=== PATIENT | male | born 1990 | race Caucasian/White ===

== ENCOUNTER 2017-06-25 18:24 | Emergency (ER) | payer OTHER ==
[~2017-06-25] VITALS: Ht 175.3 cm; Wt 117.0 kg
[2017-06-26] MEDS ORDERED: KETOROLAC 30MG/ML VIAL IV ONE (03:30)
[2017-06-26] MEDS ORDERED: ONDANSETRON HCL 4MG/2ML VIAL IM ONE (03:30)
[2017-06-26] MEDS ORDERED: KETOROLAC 30MG/ML VIAL IM ONE (03:45)
[2017-06-26] MEDS ORDERED: HYDROCODONE/ACETAMINOPHEN 5/325MG TABLET PO ONE (04:45)
[2017-06-26 05:15] VITALS: BP 128/78
== END 2017-06-26 05:16 | disposition home or self-care (01) ==
LOC: ER 18:24
DX: S33.8XXA Sprain of other parts of lumbar spine and pelvis, initial encounter (principal); I10 Essential (primary) hypertension; X50.0XXA Overexertion from strenuous movement or load, initial encounter; Y93.89 Activity, other specified; Y92.89 Other specified places as the place of occurrence of the external cause; Y99.8 Other external cause status
CPT/HCPCS: 96372; 99284; J1885; J2405

== ENCOUNTER 2018-03-07 09:28 | Emergency (ER) | payer OTHER ==
[~2018-03-07] VITALS: Ht 175.3 cm; Wt 117.0 kg
[2018-03-07] MEDS ORDERED: MORPHINE SULFATE 4 MG/ML CPJ (NOT FOR IM USE) IV STA (10:33)
[2018-03-07] MEDS ORDERED: ONDANSETRON HCL 4MG/2ML VIAL IV STA (10:33)
[2018-03-07] MEDS ORDERED: SODIUM CHLORIDE 0.9% 1,000 ML IV ONE (10:33)
[2018-03-07 10:56] LABS: BASOPHILS % 0.4 % (0.0-2.0); EOSINOPHILS % 1.4 % (0.0-5.0); HEMATOCRIT. 43.8 % (42.0-52.0); HEMOGLOBIN. 14.7 g/dL (14.0-18.0); LYMPHOCYTES % 26.1 % (20.0-50.0); MEAN CORPUSCULAR HEMOGLOBIN 29.8 pg (28.0-32.0); MEAN CORPUSCULAR VOLUME 88.8 fL (80.0-94.0); MEAN PLATELET VOLUME 9.1 fl (7.4-10.4); MONOCYTES % 6.4 % (2.0-8.0); NEUTROPHILS % 65.7 % (40.0-76.0); PLATELET 277 x1000/uL (130-400); RED BLOOD CELL COUNT 4.93 mill/uL (4.7-6.1); RED CELL DISTRIBUTION WIDTH 14.1 % (11.6-14.6)
[2018-03-07 11:00] LABS: CHLORIDE 112 mEq/L (98-107)
[2018-03-07 11:02] LABS: PROTHROMBIN TIME 10.8 sec (9.4-11.6)
[2018-03-07 11:34] LABS: KETONES URINE NEGATIVE (NEGATIVE); LEUKOCYTE ESTERASE URINE NEGATIVE (NEGATIVE); NITRITE URINE NEGATIVE (NEGATIVE); OCCULT BLOOD URINE NEGATIVE (NEGATIVE); PH URINE 6.5 (4.5-8.0); PROTEIN URINE NEGATIVE (NEGATIVE); UROBILINOGEN URINE 0.2 E.U./dL (0.2-1.0)
[2018-03-07 11:35] LABS: CLARITY URINE CLEAR (CLEAR); COLOR URINE YELLOW (YELLOW)
[2018-03-07 13:13] VITALS: BP 116/66
[2018-03-07] MEDS ORDERED: IOHEXOL-300 100 ML BOTTLE ONE (13:44)
== END 2018-03-07 14:40 | disposition home or self-care (01) ==
LOC: ER 09:39
DX: R10.31 Right lower quadrant pain (principal); I10 Essential (primary) hypertension; F17.210 Nicotine dependence, cigarettes, uncomplicated; F12.90 Cannabis use, unspecified, uncomplicated
CPT/HCPCS: 36415; 74177; 80053; 81003; 83690; 85025; 85610; 96361; 96374; 96375; 99285; J2270; J2405; J7030; Q9967; Z7610

== ENCOUNTER 2021-05-07 21:18 | Emergency (ER) | payer OTHER ==
[~2021-05-07] VITALS: Ht 177.8 cm; Wt 160.0 kg
[2021-05-07] MEDS ORDERED: LORAZEPAM 2MG/ML CPJ IV ONE (21:45)
[2021-05-07] MEDS ORDERED: ASPIRIN 81MG TABLET PO ONE (21:45)
[2021-05-07] MEDS ORDERED: NITROGLYCERIN 0.4MG TABLET SL SL PRN (21:45)
[2021-05-07] MEDS ORDERED: SODIUM CHLORIDE 0.9% 1,000 ML IV ONE (21:45)
[2021-05-07 22:15] LABS: BASOPHILS % 0.5 % (0.0-2.0); EOSINOPHILS % 1.5 % (0.0-5.0); HEMOGLOBIN. 13.5 g/dL (14.0-18.0); LYMPHOCYTES % 25.6 % (20.0-50.0); MEAN CORPUSCULAR HEMOGLOBIN 28.8 pg (28.0-32.0); MEAN CORPUSCULAR VOLUME 83.3 fL (80.0-94.0); MEAN PLATELET VOLUME 9.1 fl (7.4-10.4); MONOCYTES % 6.5 % (2.0-8.0); NEUTROPHILS % 65.9 % (40.0-76.0); PLATELET 253 x1000/uL (130-400); RED BLOOD CELL COUNT 4.68 mill/uL (4.7-6.1); RED CELL DISTRIBUTION WIDTH 15.7 % (11.6-14.6)
[2021-05-07 22:19] LABS: CHLORIDE 102 mEq/L (98-107)
[2021-05-07 22:22] LABS: ETHANOL BLOOD < 10 mg/dL
[2021-05-07 22:55] LABS: *AMPHETAMINES SCREEN URINE NEGATIVE (NEGATIVE); *BARBITURATES SCREEN URINE NEGATIVE (NEGATIVE); *BENZODIAZEPINES SCREEN URINE NEGATIVE (NEGATIVE)
[2021-05-07 22:57] LABS: *COCAINE SCREEN URINE NEGATIVE (NEGATIVE); CANNABINOID URINE SCREEN PRESUMTIVE POSITIVE (NEGATIVE); METHADONE URINE SCREEN NEGATIVE (NEGATIVE); OPIATES URINE SCREEN NEGATIVE (NEGATIVE); PHENCYCLIDINE URINE SCREEN NEGATIVE (NEGATIVE)
[2021-05-08 02:17] VITALS: BP 136/65
== END 2021-05-08 02:19 | disposition home or self-care (01) ==
LOC: ER 21:18
DX: R07.89 Other chest pain (principal); F12.90 Cannabis use, unspecified, uncomplicated; R03.0 Elevated blood-pressure reading, without diagnosis of hypertension; I10 Essential (primary) hypertension; Z68.43 Body mass index [BMI] 50.0-59.9, adult; E66.9 Obesity, unspecified; R00.0 Tachycardia, unspecified; H26.9 Unspecified cataract
CPT/HCPCS: 36415; 71045; 80053; 80305; 80320; 83880; 84484; 85025; 93005; 96361; 96374; 99285; J2060; J7030; Z7610; G0480

== ENCOUNTER 2021-07-30 00:52 | Emergency (ER) | payer OTHER ==
[~2021-07-30] VITALS: Ht 177.8 cm; Wt 157.2 kg
[2021-07-30 02:59] LABS: BASOPHILS % 0.4 % (0.0-2.0); EOSINOPHILS % 0.9 % (0.0-5.0); HEMATOCRIT. 39.7 % (42.0-52.0); HEMOGLOBIN. 13.3 g/dL (14.0-18.0); LYMPHOCYTES % 23.1 % (20.0-50.0); MEAN CORPUSCULAR HEMOGLOBIN 28.4 pg (28.0-32.0); MEAN CORPUSCULAR VOLUME 84.7 fL (80.0-94.0); MEAN PLATELET VOLUME 8.3 fl (7.4-10.4); MONOCYTES % 8.3 % (2.0-8.0); NEUTROPHILS % 67.3 % (40.0-76.0); PLATELET 243 x1000/uL (130-400); RED BLOOD CELL COUNT 4.69 mill/uL (4.7-6.1); RED CELL DISTRIBUTION WIDTH 14.6 % (11.6-14.6)
[2021-07-30 03:06] LABS: CHLORIDE 106 mEq/L (98-107)
[2021-07-30] MEDS ORDERED: AZIT250T12 MT (03:39)
[2021-07-30 03:40] VITALS: BP 124/78
== END 2021-07-30 03:48 | disposition home or self-care (01) ==
LOC: ER 00:52
DX: J18.9 Pneumonia, unspecified organism (principal); R05 Cough; M79.10 Myalgia, unspecified site; R00.0 Tachycardia, unspecified; F12.10 Cannabis abuse, uncomplicated; F17.290 Nicotine dependence, other tobacco product, uncomplicated; I10 Essential (primary) hypertension; Z79.899 Other long term (current) drug therapy; Z98.890 Other specified postprocedural states; Z20.822 Contact with and (suspected) exposure to COVID-19
CPT/HCPCS: 36415; 71045; 80053; 85025; 87426; 99284; 99406

== ENCOUNTER 2021-07-31 14:50 | Emergency (ER) | payer OTHER ==
[~2021-07-31] VITALS: Ht 177.8 cm; Wt 136.0 kg
[~2021-07-31 14:50] MED LIST: AZIT250T12 MT
[2021-07-31 16:20] LABS: BASOPHILS % 0.6 % (0.0-2.0); EOSINOPHILS % 1.3 % (0.0-5.0); HEMATOCRIT. 40.9 % (42.0-52.0); HEMOGLOBIN. 13.8 g/dL (14.0-18.0); LYMPHOCYTES % 27.4 % (20.0-50.0); MEAN CORPUSCULAR HEMOGLOBIN 28.5 pg (28.0-32.0); MEAN CORPUSCULAR VOLUME 84.2 fL (80.0-94.0); MEAN PLATELET VOLUME 8.6 fl (7.4-10.4); MONOCYTES % 6.1 % (2.0-8.0); NEUTROPHILS % 64.6 % (40.0-76.0); PLATELET 271 x1000/uL (130-400); RED BLOOD CELL COUNT 4.85 mill/uL (4.7-6.1); RED CELL DISTRIBUTION WIDTH 14.9 % (11.6-14.6)
[2021-07-31 16:26] LABS: CHLORIDE 107 mEq/L (98-107)
[2021-07-31 21:08] VITALS: BP 121/63
== END 2021-07-31 20:30 | disposition home or self-care (01) ==
LOC: ER 14:50
DX: I10 Essential (primary) hypertension (principal); R06.00 Dyspnea, unspecified; Z87.891 Personal history of nicotine dependence; F12.10 Cannabis abuse, uncomplicated
CPT/HCPCS: 36415; 71045; 71275; 80053; 83880; 84484; 85025; 99285

== ENCOUNTER 2021-08-06 01:52 | Emergency (ER) | payer OTHER ==
[~2021-08-06] VITALS: Ht 177.8 cm; Wt 156.0 kg
[2021-08-06] MEDS ORDERED: KETOROLAC 60MG/2ML VIAL IM ONE (02:30)
[2021-08-06 03:02] LABS: BASOPHILS % 0.9 % (0.0-2.0); EOSINOPHILS % 1.2 % (0.0-5.0); HEMATOCRIT. 39.7 % (42.0-52.0); HEMOGLOBIN. 13.2 g/dL (14.0-18.0); LYMPHOCYTES % 30.2 % (20.0-50.0); MEAN CORPUSCULAR HEMOGLOBIN 28.4 pg (28.0-32.0); MEAN CORPUSCULAR VOLUME 85.4 fL (80.0-94.0); MEAN PLATELET VOLUME 8.4 fl (7.4-10.4); MONOCYTES % 6.8 % (2.0-8.0); NEUTROPHILS % 60.9 % (40.0-76.0); PLATELET 283 x1000/uL (130-400); RED BLOOD CELL COUNT 4.65 mill/uL (4.7-6.1); RED CELL DISTRIBUTION WIDTH 14.7 % (11.6-14.6)
[2021-08-06 03:07] LABS: CHLORIDE 107 mEq/L (98-107)
[2021-08-06 03:11] LABS: ETHANOL BLOOD < 10 mg/dL
[2021-08-06 04:15] VITALS: BP 132/80
== END 2021-08-06 04:30 | disposition home or self-care (01) ==
LOC: ER 01:52
DX: E03.9 Hypothyroidism, unspecified (principal); R00.2 Palpitations
CPT/HCPCS: 36415; 80053; 80320; 83690; 83880; 84443; 84484; 85025; 93005; 96372; 99284; J1885; G0480

== ENCOUNTER 2023-01-02 07:29 | Emergency (ER) | payer OTHER ==
[~2023-01-02] VITALS: Ht 175.3 cm; Wt 156.0 kg
[2023-01-02 07:41] VITALS: BP 175/89
== END 2023-01-02 08:26 | disposition left against medical advice (07) ==
LOC: ER 07:29
DX: I10 Essential (primary) hypertension (principal)
CPT/HCPCS: 99281

== ENCOUNTER 2023-05-05 23:24 | Emergency (ER) | payer MEDICAID, OTHER ==
[~2023-05-05] VITALS: Ht 177.8 cm; Wt 156.5 kg
[2023-05-06] MEDS ORDERED: HYDR-4001 MT (00:24)
[2023-05-06] MEDS ORDERED: AMOX-494 MT (00:24)
[2023-05-06] MEDS ORDERED: IBUP-2029 MT (00:24)
[2023-05-06 00:30] VITALS: BP 136/74
[2023-05-06] MEDS ORDERED: HYDROCODONE/ACETAMINOPHEN 5/325MG TABLET PO ONE (00:30)
== END 2023-05-06 01:05 | disposition home or self-care (01) ==
LOC: ER 23:24
DX: K08.89 Other specified disorders of teeth and supporting structures (principal); I10 Essential (primary) hypertension; Z86.39 Personal history of other endocrine, nutritional and metabolic disease
CPT/HCPCS: 99283

== ENCOUNTER 2023-05-22 05:45 | Emergency (ER) | payer MEDICAID, OTHER ==
[~2023-05-22] VITALS: Ht 172.7 cm; Wt 153.0 kg
[~2023-05-22 05:45] MED LIST changes: +AMOX-494 MT; +HYDR-4001 MT; +IBUP-2029 MT
[2023-05-22 06:18] VITALS: TEMP 98.2; O2SAT 97
[2023-05-22 06:19] LABS: CLARITY URINE CLOUDY (CLEAR); COLOR URINE YELLOW (YELLOW); KETONES URINE NEGATIVE (NEGATIVE); LEUKOCYTE ESTERASE URINE 3+ (NEGATIVE); NITRITE URINE NEGATIVE (NEGATIVE); OCCULT BLOOD URINE 3+ (NEGATIVE); PROTEIN URINE 2+ (NEGATIVE); UROBILINOGEN URINE 0.2 E.U./dL (0.2-1.0)
[2023-05-22] MEDS ORDERED: PYR200 MT (07:51)
[2023-05-22] MEDS ORDERED: CEPH500C2 MT (07:51)
[2023-05-22] MEDS ORDERED: IBUP-2029 MT (07:51)
[2023-05-22 08:00] VITALS: BP 144/80; PULSE 86; RESP 19
[2023-05-22] MEDS ORDERED: IBUPROFEN 600MG TABLET PO ONE (08:00)
[2023-05-27 04:12] LABS: NEISSERIA GONORRHOEAE NAA Negative (Negative)
== END 2023-05-22 08:09 | disposition home or self-care (01) ==
LOC: ER 05:45
DX: N30.90 Cystitis, unspecified without hematuria (principal); F12.10 Cannabis abuse, uncomplicated; Z79.899 Other long term (current) drug therapy
CPT/HCPCS: 81003; 87186; 87491; 87591; 99283

== ENCOUNTER 2024-07-14 19:26 | Emergency (ER) | payer MEDICAID, OTHER ==
[~2024-07-14] VITALS: Ht 175.3 cm; Wt 158.0 kg
[~2024-07-14 19:26] MED LIST changes: +CEPH500C2 MT; +PYR200 MT
[2024-07-14 19:30] VITALS: O2SAT 96
[2024-07-14 19:34] VITALS: BP 148/84; PULSE 78; RESP 18; TEMP 98.2; O2SAT 98
[2024-07-14] MEDS: DEXAMETHASONE 10 MG/ML VIAL IM ONE (20:15)
[2024-07-14 21:41] LABS: BASOPHILS % 0.6 % (0.0-2.0); EOSINOPHILS % 0.9 % (0.0-5.0); HEMATOCRIT. 39.4 % (42.0-52.0); HEMOGLOBIN. 12.7 g/dL (14.0-18.0); LYMPHOCYTES % 25.4 % (20.0-50.0); MEAN CORPUSCULAR HEMOGLOBIN 27.3 pg (28.0-32.0); MEAN CORPUSCULAR HGB CONC 32.3 g/dL (31.0-37.0); MEAN CORPUSCULAR VOLUME 84.5 fL (80.0-94.0); MEAN PLATELET VOLUME 8.4 fl (7.4-10.4); MONOCYTES % 6.6 % (2.0-8.0); NEUTROPHILS % 66.5 % (40.0-76.0); PLATELET 290 x1000/uL (130-400); RED BLOOD CELL COUNT 4.66 mill/uL (4.7-6.1); RED CELL DISTRIBUTION WIDTH 15.1 % (11.6-14.6)
[2024-07-14 21:50] LABS: CHLORIDE 110 mEq/L (98-107); POTASSIUM 3.7 mEq/L (3.5-5.1); SODIUM 139 mEq/L (136-145)
[2024-07-14 21:51] LABS: CARBON DIOXIDE 23 mEq/L (21-32)
[2024-07-14 21:52] LABS: CALCIUM 8.7 mg/dL (8.7-10.4)
[2024-07-14 21:56] LABS: CREATININE 1.1 mg/dL (0.6-1.3); GLUCOSE 109 mg/dL (70-105); UREA NITROGEN BLOOD 9 mg/dL (9-23)
[2024-07-14 22:04] LABS: TROPONIN I HIGH SENSITIVITY < 4 ng/L (3.0-53)
== END 2024-07-15 00:27 | disposition home or self-care (01) ==
LOC: ER 19:26
DX: R06.00 Dyspnea, unspecified (principal); F12.90 Cannabis use, unspecified, uncomplicated; I10 Essential (primary) hypertension; E03.9 Hypothyroidism, unspecified; Z98.890 Other specified postprocedural states; Z79.899 Other long term (current) drug therapy
CPT/HCPCS: 80048; 83880; 85025; 84484; 36415; 71045; 93005; 96372; 99284; J1100; Z7610

== ENCOUNTER 2024-09-29 23:19 | Emergency (ER) | payer MEDICAID ==
[~2024-09-29] VITALS: Ht 177.8 cm; Wt 165.0 kg
[2024-09-29 23:41] VITALS: O2SAT 100
[2024-09-30 00:06] LABS: BASOPHILS % 0.2 % (0.0-2.0); EOSINOPHILS % 0.2 % (0.0-5.0); HEMATOCRIT. 44.7 % (42.0-52.0); HEMOGLOBIN. 14.9 g/dL (14.0-18.0); LYMPHOCYTES % 18.5 % (20.0-50.0); MEAN CORPUSCULAR HEMOGLOBIN 28.3 pg (28.0-32.0); MEAN CORPUSCULAR HGB CONC 33.2 g/dL (31.0-37.0); MEAN CORPUSCULAR VOLUME 85.1 fL (80.0-94.0); MEAN PLATELET VOLUME 8.9 fl (7.4-10.4); MONOCYTES % 5.8 % (2.0-8.0); NEUTROPHILS % 75.3 % (40.0-76.0); PLATELET 241 x1000/uL (130-400); RED BLOOD CELL COUNT 5.25 mill/uL (4.7-6.1); RED CELL DISTRIBUTION WIDTH 16.8 % (11.6-14.6); WHITE BLOOD COUNT 8.2 x1000/uL (4.5-11.0)
[2024-09-30 00:07] LABS: CARBON DIOXIDE 21 mEq/L (21-32); CHLORIDE 111 mEq/L (98-107); POTASSIUM 3.3 mEq/L (3.5-5.1); SODIUM 142 mEq/L (136-145)
[2024-09-30 00:08] LABS: CALCIUM 9.1 mg/dL (8.7-10.4)
[2024-09-30 00:09] LABS: CLARITY URINE CLOUDY (CLEAR); COLOR URINE DARK YELLOW (YELLOW); GLUCOSE URINE NEGATIVE (NEGATIVE); KETONES URINE TRACE (NEGATIVE); LEUKOCYTE ESTERASE URINE 2+ (NEGATIVE); NITRITE URINE NEGATIVE (NEGATIVE); OCCULT BLOOD URINE 1+ (NEGATIVE); PH URINE 7.5 (4.5-8.0); PROTEIN URINE 2+ (NEGATIVE); SPECIFIC GRAVITY URINE 1.025 (1.005-1.030)
[2024-09-30 00:13] LABS: CREATININE 1.3 mg/dL (0.6-1.3); GLUCOSE 146 mg/dL (70-105); UREA NITROGEN BLOOD 12 mg/dL (9-23)
[2024-09-30 00:15] LABS: ALANINE AMINOTRANSFERASE 161 IU/L (10-49); ALBUMIN 4.7 g/dL (3.2-4.8); ASPARTATE AMINOTRANSFERASE 192 IU/L (<34); BILIRUBIN DIRECT 0.7 mg/dL (<=3.0); BILIRUBIN TOTAL 1.4 mg/dL (0.1-1.0); PROTEIN TOTAL 8.5 g/dL (6.0-8.3)
[2024-09-30] MEDS: CEFTRIAXONE SODIUM 1G VIAL IM ONE (01:00)
[2024-09-30] MEDS: KETOROLAC 30MG/ML VIAL IM STA (01:00)
[2024-09-30 01:27] LABS: WBC URINE 0-2 /hpf (0-2)
[2024-09-30 01:28] LABS: SQUAMOUS EPITHELIAL CELL URINE NONE SEEN /lpf (RARE/1+)
[2024-09-30 01:29] LABS: BACTERIA URINE 2+
[2024-09-30 01:30] LABS: AMORPHOUS SEDIMENT URINE 1+ /lpf
[2024-09-30] MEDS ORDERED: CEPH500C2 MT (02:56)
[2024-09-30] MEDS ORDERED: NAPR-1176 MT (02:56)
[2024-09-30 03:45] VITALS: BP 161/83; PULSE 95; RESP 17; TEMP 37.00296; O2SAT 100
== END 2024-09-30 03:45 | disposition home or self-care (01) ==
LOC: ER 23:19
DX: N12 Tubulo-interstitial nephritis, not specified as acute or chronic (principal); I10 Essential (primary) hypertension; E03.9 Hypothyroidism, unspecified; F12.10 Cannabis abuse, uncomplicated; Z79.899 Other long term (current) drug therapy
CPT/HCPCS: 80076; 80048; 81003; 83690; 85025; 36415; 99285; 74176; 96372; J0696; J1885; Z7610 ×2